=== PATIENT | female | born 2000 | race Caucasian/White ===

== ENCOUNTER 2022-08-29 09:05 | Outpatient (CLI) | payer BC, SELFPAY ==
[2022-08-29 22:06] LABS: Chlamydia DNA Amplified* NOT DETECTED (No Detected); GC DNA Amplified* NOT DETECTED (No Detected)
== END 2022-08-29 09:06 | disposition home or self-care (01) ==
PROVIDERS: PCP Family Medicine; Visit Provider Family Medicine
DX: R30.0 Dysuria (principal)
CPT/HCPCS: 87086; 87491; 87591